=== PATIENT | female | born 1955 | race Caucasian/White ===

== ENCOUNTER 2018-03-15 23:26 | Emergency (ER) | payer OTHER ==
[2018-03-15 23:59] VITALS: BP 136/85; PULSE 76; TEMP 97.7; BMI 29.0
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
[2018-03-16 02:40] LABS: BASO % 0.4 % (0-2.0); EOS % 0.8 % (0-4.5); HEMATOCRIT 44.6 % (32.4-45.2); HEMOGLOBIN 14.8 GM/dL (10.7-15.3); LYMPH % 13.7 % (8-40); MCH 30.8 pg (25.7-33.7); MCHC 33.1 g/dl (32.0-36.0); MEAN CELL VOLUME 93.1 fl (80-96); MEAN PLT VOLUME 10.5 fl (7.5-11.1); MONO % 6.2 % (3.8-10.2); NEUT % 78.9 % (42.8-82.8); PLATELET COUNT 202 K/MM3 (134-434); RBC 4.79 M/mm3 (3.60-5.2); RDW 14.5 % (11.6-15.6); WHITE BLOOD COUNT 10.1 K/mm3 (4.0-10.0)
[2018-03-16 03:56] LABS: ALBUMIN 3.8 g/dl (3.4-5.0); ALK PHOS 113 U/L (45-117); ANION GAP 10 MMOL/L (8-16); BILIRUBIN,TOTAL 0.2 mg/dL (0.2-1); BLOOD UREA NITROGEN 15 mg/dL (7-18); CALCIUM 9.7 mg/dL (8.5-10.1); CHLORIDE 110 mmol/L (98-107); CO2 22 mmol/L (21-32); CREATININE 0.7 mg/dL (0.55-1.3); GLUCOSE,RANDOM 102 mg/dL (74-106); POTASSIUM 4.4 mmol/L (3.5-5.1); SGOT/AST 19 U/L (15-37); SGPT/ALT 34 U/L (13-61); SODIUM 142 mmol/L (136-145); TOT PROT 7.1 g/dl (6.4-8.2)
== END 2018-03-16 04:00 | disposition left against medical advice (07) ==
LOC: JER 23:26
PROC: 2W3RX1Z Immobilization of Left Lower Leg using Splint (ICD-10-PCS; principal; 2018-03-15)
DX: S06.0X9A Concussion with loss of consciousness of unspecified duration, initial encounter (principal); M54.2 Cervicalgia; M25.562 Pain in left knee
CPT/HCPCS: 36415; 70450-TC; 71250-TC; 72125-TC; 73070-TC-LT-FY; 73562-TC-LT-FY; 74176-TC; 80053; 80307; 85025; 99283-25